=== PATIENT | female | born 1945 | race Caucasian/White ===

== ENCOUNTER 2017-01-27 02:28 | Inpatient (IN) ==
[2017-01-21 09:27] LABS: MANUAL DIFF NEEDED? NO; URINE MICRO REVIEW NEEDED? NO; URINE SOURCE CLEAN CATCH
[2017-01-21 09:52] LABS: BASO% 1.1 % (0.0-0.8); BILIRUBIN URINE NEGATIVE (NEGATIVE); BLOOD URINE NEGATIVE (NEGATIVE); COLOR YELLOW; EOS% 4.8 % (0.0-10.0); GLUCOSE URINE NEGATIVE (NEGATIVE); HEMATOCRIT 38.6 % (37.0-47.0); HEMOGLOBIN 12.2 g/dL (12.0-16.0); IMM GRAN# 0.02 X1000 (0.0-0.04); IMM GRAN% 0.2 % (0.0-0.5); LEUKOCYTES URINE LARGE (NEGATIVE); LYMPH# 2.99 X1000 (1.2-3.4); LYMPH% 28.5 % (20.5-51.1); MCH 30.6 PG (27-31); MCHC 31.6 g/dL (33-37); MCV 96.7 FL (81-99); MONO# 0.98 X1000 (0.11-0.59); MONO% 9.3 % (1.7-9.3); MPV 11.2 FL (7.4-10.4); NEUT% 56.1 % (42.2-75.2); NITRITE URINE NEGATIVE (NEGATIVE); PH URINE 5.5; PLT 260 X1000 (130-400); PROTEIN URINE 50 mg/dL (NEGATIVE); RBC 3.99 XMIL (4.2-5.4); SP GRAVITY URINE 1.015; TURBIDITY URINE HAZY (CLEAR); UROBILINOGEN URINE NORMAL (NORMAL)
[2017-01-21 09:53] LABS: UR EPITHELIAL CELLS <10 /HPF (<10); URINE BACTERIA 4+ /HPF; URINE RBC <10 /HPF (<10); URINE WBC TNTC /HPF (<10)
[2017-01-21 10:00] LABS: INR 1.02; PROTIME 10.7 Seconds (9.2-11.7); PTT 25.9 Seconds (22.0-36.0)
[2017-01-21 10:08] LABS: CALCIUM 8.5 mg/dL (8.8-10.2); POTASSIUM 4.6 mmol/L (3.5-5.1)
--- NOTE | 2017-01-21 12:39 | EKG Report ---
Test Performed on : 01/21/2017 09:13:59 AM Test Reason : PAT Blood Pressure : / mmHG Vent. Rate : 066 BPM Atrial Rate : 066 BPM P-R Int : 200 ms QRS Dur : 124 ms QT Int : 424 ms P-R-T Axes : 049 -53 032 degrees QTc Int : 444 ms Normal sinus rhythm. Left anterior fascicular block Abnormal ECG When compared with ECG of 26-DEC-2014 08:58, Sinus rhythm. has replaced Atrial fibrillation. Right bundle branch block is no longer present Confirmed by Juan HARLEY, Frederic Wallace ([id number]) on 01/21/2017 4:17:27 PM
[2017-01-27] MEDS ORDERED: LYRICA ONE (06:36)
[2017-01-27] MEDS ORDERED: COLACE ONE (06:36)
[2017-01-27] MEDS ORDERED: PEPCID ONE (06:36)
[2017-01-27] MEDS ORDERED: REGLAN ONE (06:36)
[2017-01-27] MEDS ORDERED: KEFZOL 1 GM/D5W 1 GM/50 ML IVPB ONE (06:37)
[2017-01-27] MEDS ORDERED: LR 1,000 ML ONE (06:37)
[2017-01-27] MEDS ORDERED: MORPHINE IV PRN (06:50)
[2017-01-27] MEDS ORDERED: DURAMORPH ONE (09:03)
[2017-01-27] MEDS ORDERED: TORADOL ONE (09:03)
[2017-01-27] MEDS ORDERED: MARCAINE 0.25% PF ONE (09:03)
[2017-01-27] MEDS ORDERED: CYKLOKAPRON 1,000 MG/NS 1,000 MG/100 ML IVPB ONE ×2 (09:04→10:21)
[2017-01-27] MEDS ORDERED: VANCOMYCIN ONE (09:04)
[2017-01-27] MEDS ORDERED: SODIUM CHLORIDE 0.9% ONE (09:04)
[2017-01-27] MEDS ORDERED: NEOSPORIN G.U. IRRIGANT ONE (09:05)
[2017-01-27] MEDS ORDERED: EXPAREL 1.3% ONE (09:05)
[2017-01-27] MEDS ORDERED: NS 250 ML ONE (09:05)
[2017-01-27] MEDS ORDERED: FENTANYL ONE (09:38)
[2017-01-27] MEDS ORDERED: DIPRIVAN 1% ONE (09:38)
[2017-01-27] MEDS ORDERED: LABETALOL ONE (09:40)
[2017-01-27] MEDS ORDERED: DECADRON ONE ×2 (09:46→09:47)
[2017-01-27] MEDS ORDERED: ZOFRAN ONE (09:47)
[2017-01-27 10:06] LABS: URINE CULTURE NEEDED? NO; URINE MICRO REVIEW NEEDED? NO; URINE SOURCE CATH
[2017-01-27 10:11] LABS: BILIRUBIN URINE NEGATIVE (NEGATIVE); BLOOD URINE NEGATIVE (NEGATIVE); COLOR STRAW; GLUCOSE URINE NEGATIVE (NEGATIVE); LEUKOCYTES URINE NEGATIVE (NEGATIVE); NITRITE URINE NEGATIVE (NEGATIVE); PROTEIN URINE TRACE mg/dL (NEGATIVE); SP GRAVITY URINE 1.005; TURBIDITY URINE CLEAR (CLEAR); UR EPITHELIAL CELLS <10 /HPF (<10); URINE BACTERIA NEGATIVE /HPF; URINE RBC <10 /HPF (<10); URINE WBC <10 /HPF (<10); UROBILINOGEN URINE NORMAL (NORMAL)
[2017-01-27] MEDS ORDERED: OFIRMEV 1000 MG/ISOTONIC SOLN 1,000 MG/100 ML BOTTLE ONE (10:41)
[2017-01-27] MEDS ORDERED: NS 1,000 ML ONE (11:10)
--- NOTE | 2017-01-27 11:42 | Diag Imaging Result Doc PS360 ---
KNEE 1-2 VIEWS-RIGHT - 01/27/2017 INDICATION: tka TECHNIQUE: Two views COMPARISON: None FINDINGS: There has been right total knee arthroplasty. There is also a right femoral merline. Alignment is anatomic. No hardware fracture or loosening. IMPRESSION: No complication. Electronically signed by Sohail Tenorio 01/27/2017 11:40 AM
--- NOTE | 2017-01-27 11:48 | OPERATIVE NOTE ---
PROCEDURE DATE: 01/27/2017 PREOPERATIVE DIAGNOSIS: Degenerative joint disease, right knee. POSTOPERATIVE DIAGNOSIS: Degenerative joint disease, right knee. PROCEDURE: Right total knee replacement. SURGEON: Dr. Chica Diallo. DATA GOVERNANCE ANALYST: KEM Britt. ANESTHESIA: General. COMPLICATION: None. PROCEDURE IN DETAIL: This 72-year-old female presents for right knee replacement. Risks, benefits, and no guarantees were discussed, and she is willing to proceed. She was taken to the operating room and satisfactory anesthesia obtained. The right knee was prepped and draped in usual sterile fashion. A time-out was taken to confirm operative site, procedure, and patient. The leg was wrapped with an Esmarch and tourniquet inflated to 350 mmHg. A midline incision was made over the front of the knee followed by a quad tendon sparing arthrotomy. The patella was everted and resurfaced with freehand technique and sized to a size 32 medialized dome patella. A drill paddle was used to prepare for the implant and the patella subluxed laterally with the trial implant. The knee was flexed. An intramedullary hole made in the distal femur. The distal femoral cutting block was secured in 5 degrees of valgus and checked prior to the cutting with an extramedullary merline centered over the femoral head for proper alignment. Distal femoral resection was made and the distal femur sized to a size 4 DePuy Attune component. The 4-in-1 block was secured and the anterior, posterior, and chamfer cuts sequentially made. A notch was created for the posterior stabilized design using the provided notch guide and any remaining osteophytes debrided. The knee was flexed and a PCL retractor placed behind the tibia to protect the neurovascular bundle. The tibial resection guide was placed with extramedullary alignment and tibial resection made. Flexion and extension gaps were both slightly tight and an additional 2 mm taken off the tibia with good soft tissue balance. The tibia was sized to a size 5 tibial tray. A trial reduction was performed with an 8 mm thick poly with good range of motion and stability. The good stability and range of motion and patellar tracking was noted. The trial implants removed. The bony surfaces thoroughly irrigated with pulsatile lavage. Cement with a gram of vancomycin was then utilized to cement a DePuy Attune size 5 rotating platform tibial tray, a size 4 right posterior stabilized femoral component, and a 32 medialized dome patella. Excess cement was removed with a Durant elevator. After curing the cement, an 8 mm size 4 posterior stabilized poly was placed into the tibial bearing and the knee reduced. Final range of motion was 0-120 degrees with midline patellar tracking. The arthrotomy was injected with Exparel for pain management and Hemovac drain placed. It was then closed with #1 Vicryl in the arthrotomy, 2-0 Vicryl in the subcutaneous, and skin alberta on the skin edges. Sterile dressings completed the closure and the patient was recovered from anesthesia and transferred to the recovery room in stable condition. Tourniquet was released with good return of capillary blood flow. No intraoperative complications were noted. Instrument count and sponge count was correct at the time of closure. cc: Ben Diallo MD
[2017-01-27] MEDS ORDERED: ZOFRAN IV ONE (12:34)
[2017-01-27] MEDS ORDERED: ZOFRAN IV PRN (12:34)
[2017-01-27] MEDS: FOSAMAX PO SCH (13:14)
[2017-01-27] MEDS: SYNTHROID PO SCH (13:15)
[2017-01-27] MEDS: PRINIVIL PO SCH (13:15)
[2017-01-27] MEDS: COLACE PO SCH ×2 (13:16→22:09)
[2017-01-27] MEDS: NORCO-10 PO PRN (14:26)
--- NOTE | 2017-01-27 16:19 | PROGRESS NOTE ---
DATE: 01/27/2017 SUBJECTIVE: Ms. Rivera is seen status post total knee replacement. At the present time, she is without complaint. She reports minimal pain. OBJECTIVE: She is afebrile with stable vital signs. Her bandage is clean and dry. There is no signs of DVT. She has good capillary refill. She has good motion of the toes and ankles with up and downgoing motion. Presently, she is in stable condition. cc: Ben Diallo MD
[2017-01-27] MEDS: KEFZOL 1 GM/D5W 1 GM/50 ML IVPB IV SCH (16:24)
[2017-01-27] MEDS ORDERED: LIPITOR PO SCH (21:00)
[2017-01-27] MEDS: NS 1,000 ML IV SCH (22:10)
[2017-01-27] MEDS: PERIDEX MT SCH (22:10)
[2017-01-28] MEDS: KEFZOL 1 GM/D5W 1 GM/50 ML IVPB IV SCH (01:48)
[2017-01-28] MEDS: NS 1,000 ML IV SCH ×2 (01:48→08:08)
[2017-01-28] MEDS ORDERED: XARELTO PO SCH (06:00)
[2017-01-28 06:02] LABS: HEMATOCRIT 31.5 % (37.0-47.0)
[2017-01-28] MEDS: SYNTHROID PO SCH (06:12)
[2017-01-28] MEDS: NORCO-10 PO PRN (06:12)
[2017-01-28 06:36] LABS: CALCIUM 7.9 mg/dL (8.8-10.2); POTASSIUM 5.4 mmol/L (3.5-5.1)
[2017-01-28] MEDS: FOSAMAX PO SCH (07:01)
--- NOTE | 2017-01-28 08:52 | DISCHARGE SUMMARY ---
ADMISSION DATE: 01/27/2017 DISCHARGE DATE: 01/28/2017 ADMISSION DIAGNOSIS: Degenerative joint disease of the right knee. ADDITIONAL DIAGNOSES: 1. History of diabetes. 2. Hypertension. 3. Rheumatism. DISCHARGE DIAGNOSIS: Degenerative joint disease of the right knee. ADMITTING HISTORY AND HOSPITAL COURSE: This 72-year-old female with DJD about the right knee was admitted to the hospital for a right knee replacement. She underwent a knee replacement on 01/27/2017. Postoperatively, she was mobilized, full weightbearing, and steadily progressed. She remained afebrile with stable vital signs. Her blood count and electrolytes were relatively stable. She is discharged home today on 01/28/2017 for outpatient followup. She is to receive home physical therapy. She can continue with her home medications. I will see her back in 14 days for repeat followup. DISCHARGE MEDICATIONS: Include [place] 10 one to two every 4 to 6 hours p.r.n. pain, Xarelto 10 mg daily for 2 weeks, alendronate 5 mg daily, Bactrim DS b.i.d. for 5 days, Lantus subcutaneous insulin per her sliding scale, levothyroxine tablet daily, lisinopril daily. DISCHARGE INSTRUCTIONS: She is to return in the interim for any worsening signs or symptoms. cc: Ben Diallo MD
[2017-01-28] MEDS: PRINIVIL PO SCH (09:03)
[2017-01-28] MEDS: PERIDEX MT SCH (09:03)
[2017-01-28] MEDS: COLACE PO SCH (09:03)
[2017-01-28 12:04] VITALS: BP 128/48
== END 2017-01-28 12:07 | disposition home health service (06) ==
LOC: SURHOLD 02:28 → 4N 09:12
PROVIDERS: ADMIT Orthopaedic Surgery Adult Reconstructive Orthopaedic Surgery; ATTEND Orthopaedic Surgery Adult Reconstructive Orthopaedic Surgery